=== PATIENT | male | born 1975 | race Caucasian/White ===

== ENCOUNTER → 2018-04-04 | Outpatient (CLI) | payer OTHER ==
[~2018-04-04] MED LIST: REGADENOSON 0.4 MG/5 ML DISP.SYRIN. IV ONE
--- NOTE | 2018-04-05 18:44 | PCVCIMAG ---
APPROVED REPORT Imaging Protocol: Rest Tc-99m/Stress Tc-99m 1 day Study performed: 04/04/2018 13:37:49 Indication: Chest pain, Abnormal EKG Patient Location: Out-Patient Stress Nurse: Elsie Damon RN GA Tech:Valeria Flannery [facility] Ht: 5 ft 8 in Wt: 135 lbs BSA: 1.73 m2 HR: 80 bpm BP: 109/77 mmHg BMI: 20.5 Rhythm: SR Medical History Medical History: Hyperlipidemia, Former Smoker, FHX of CAD Medications: Atorvastatin Allergies: PCN Pretest Chest Pain Characteristics: No chest pain Exercise History: Indeterminate Physical Disabilities: Gait disturbance d/t MS Resting Data Rest SPECT myocardial perfusion imaging was performed in supine position 45 minutes following the intravenous injection of 10.2 mCi of Tc-99m Sestamibi. Time of rest injection: 1300 Date: 04/04/2018 Administration Route: IV Administration Site: Right AC Pharmacologic Stress Pharmacologic stress test was performed by injecting Regadenoson 0.4 mg IV push over 10-15 seconds immediately followed by the intravenous injection of 35.5 mCi of Tc-99m Sestamibi. Time of stress injection: 1410 Date: 04/04/2018 Administration Route: IV Administration Site: Right AC Gated Stress SPECT was performed 45 minutes after stress injection. The images were gated to evaluate regional wall motion and calculate left ventricular ejection fraction. Stress Test Details Stress Test: Pharmacologic stress was paired with low level exercise. Reason for pharmacologic stress test: physical limitation, multiple sclerosis. HRMax Heart Rate (APMHR): 176 bpm Resting HR: 80 bpmTarget HR (85% APMHR): 149 bpm Max HR Achieved: 130 bpm % of APMHR: 73 Recovery HR: 78 bpm BP Resting BP: 109/77 mmHg Recovery BP: 114/68 mmHg ECG Resting ECG: Sinus Rhythm Stress ECG: Sinus Tachycardia Recovery ECG: Sinus Rhythm Clinical Reason for Termination: Completed protocol Stress Symptoms: Dyspnea, Nausea Exercise duration: 4 min 00 sec Exercise capacity: 1.6 METs Symptoms resolved with caffeine. Stress ECG Conclusion ECG: Non-ischemic Study Quality Study: Good Study Data Post stress, the left ventricular ejection was 63%.. SSS: 0 SRS: 0 SDS: 0 TID = 1.11. Perfusion No evidence of stress induced ischemia or prior myocardial infarction. Wall Motion Normal left ventricular size and function with no regional wall motion abnormalities. Nuclear Conclusion No evidence of stress induced ischemia or prior myocardial infarction. Normal left ventricular size and function with no regional wall motion abnormalities. Post stress, the left ventricular ejection was 63%. No prior study available for comparison. Interpreted by: José Manuel Mayes MD Electronically Approved: 04/04/2018 16:28:52 <Conclusion> ECG: Non-ischemic
== END | disposition home or self-care (01) ==
LOC: PCVCIMAG 13:49
PROVIDERS: ATTEND Internal Medicine Cardiovascular Disease
DX: R07.9 Chest pain, unspecified (principal); R94.31 Abnormal electrocardiogram [ECG] [EKG]; G35 Multiple sclerosis
CPT/HCPCS: 78452; 93017; A9500; J2785